=== PATIENT | female | born 1990 | race Caucasian/White ===

== ENCOUNTER 2017-10-16 09:33 | Emergency (ER) | END 2017-10-16 11:10 | disposition home or self-care (01) ==

== ENCOUNTER 2018-11-03 08:58 | Emergency (ER) | payer OTHER ==
[~2018-11-03] VITALS: Wt 90.0 kg
[~2018-11-03 08:58] MED LIST: HYDR-4011 PO; MISO100T VAG; ONDA4TAB14 PO
[2018-11-03] MEDS ORDERED: ACETAMINOPHEN 325 MG TAB PO STA (09:27)
[2018-11-03 12:55] VITALS: BP 132/70; PULSE 79; RESP 18
== END 2018-11-03 12:55 | disposition home or self-care (01) ==
LOC: FTE 08:58
DX: O02.1 Missed abortion (principal)
CPT/HCPCS: 36415; 76801; 76817; 80053; 81001; 84702; 85025; 86900; 86901; Z7502; Z7610

== ENCOUNTER 2018-11-16 10:03 | Observation (INO) | payer OTHER ==
[~2018-11-16] VITALS: Ht 170.2 cm; Wt 90.0 kg
[2018-11-16] VITALS (21 sets, daily range): BP systolic 99–135; BP diastolic 53–75; PULSE 59–102; RESP 14–20; Ht 170.2 cm; Wt 90.0 kg
[2018-11-16] MEDS ORDERED: ACETAMINOPHEN 325 MG TAB PO PRN (14:00)
[2018-11-16] MEDS ORDERED: ONDANSETRON 4 MG INJ IV PRN ×2 (14:00→21:00)
[2018-11-16] MEDS ORDERED: CEFAZOLIN 2 GM/50 ML (PMX) 50 ML IVPB ONE (20:00)
[2018-11-16] MEDS ORDERED: DEXTROSE 5%-0.45% NACL 1,000 ML IV SCH (20:00)
[2018-11-16] MEDS ORDERED: MEPERIDINE 25 MG INJ IV PRN (21:00)
[2018-11-16] MEDS ORDERED: FENTAnyl 50 MCG/ML VIAL IV PRN (21:00)
[2018-11-16] MEDS ORDERED: HYDROmorphONE 1 MG/5 ML IV SYRINGE IV PRN ×3 (21:00)
[2018-11-16] MEDS ORDERED: PROCHLORPERAZINE 10 MG INJ IV PRN (21:00)
[2018-11-16] MEDS ORDERED: DIPHENHYDRAMINE 50 MG INJ IV PRN (21:00)
[2018-11-16] MEDS ORDERED: EPHEDrine 25 MG/5 ML SYG ONE (21:05)
[2018-11-16] MEDS ORDERED: CEFAZOLIN 1 GM INJ ONE (21:05)
[2018-11-16] MEDS ORDERED: MIDAZOLAM 1 MG/ML 2 ML INJ ONE (21:05)
[2018-11-16] MEDS ORDERED: LIDOCAINE 2% (SDV) 5 ML INJ ONE (21:05)
[2018-11-16] MEDS ORDERED: PROPOFOL 20 ML ONE (21:05)
[2018-11-16] MEDS ORDERED: FENTAnyl 50 MCG/ML VIAL ONE (21:13)
[2018-11-16] MEDS ORDERED: ONDANSETRON 4 MG INJ ONE (21:22)
[2018-11-16] MEDS ORDERED: DEXAMETHASONE 4 MG/ML 5 ML INJ ONE (21:22)
[2018-11-16] MEDS ORDERED: PHENYLephrine (100 MCG/ML) 10ML SYG ONE (21:24)
[2018-11-16] MEDS ORDERED: METHYLERGONOVINE 0.2 MG INJ ONE (21:25)
[2018-11-16] MEDS ORDERED: OXYTOCIN 10 UNIT INJ ONE (21:27)
[2018-11-16] MEDS ORDERED: EPHEDrine 25 MG/5 ML SYG IV PRN (22:00)
[2018-11-17 00:01] VITALS: BP 110/64; PULSE 69; RESP 18
[2018-11-17 00:30] VITALS: BP 109/55; PULSE 68; RESP 20
== END 2018-11-17 01:35 | disposition home or self-care (01) ==
LOC: FTE 10:03 → MS1 13:58
PROVIDERS: ADMIT Obstetrics & Gynecology Gynecology; ATTEND Obstetrics & Gynecology Gynecology
DX: O03.4 Incomplete spontaneous abortion without complication (principal)
CPT/HCPCS: 36415; 59812; 76801; 76817; 81001; 81025; 84702; 85025; 86850; 86900; 86901; J0690; J1100; J2210; J2250; J2370; J2405; J2590; J3010; J7042; Z7500; Z7502; Z7512; Z7610; 81003; 88305; G0378